=== PATIENT | male | born 1970 ===

== ENCOUNTER 2017-05-08 19:15 | Emergency (ER) | payer SELFPAY ==
[2017-05-08] MEDS ORDERED: Sodium Chloride 0.9% 1,000 ML IV ONE ×2 (19:46→19:47)
[2017-05-08] MEDS ORDERED: Atropine-Diphenoxylate 0.025-2.5 mg Tab PO STA (19:48)
[2017-05-08] MEDS ORDERED: Atropine-Diphenoxylate 0.025-2.5 mg Tab ONE (19:51)
[2017-05-08] MEDS ORDERED: Sodium Chloride 0.9% 1,000 ML ONE (19:52)
--- NOTE | 2017-05-08 19:57 | C.PDOC ---
History Of Present Illness A 46 y/o male c/o abdominal pain and diarrhea for the past 2 days. Pt denies fever, chills, nausea, vomiting, or any other complaints. Time Seen by Provider: 05/08/17 19:56 Chief Complaint (Nursing): Abdominal Pain History Per: Patient History/Exam Limitations: no limitations Current Symptoms Are (Timing): Still Present Severity: Mild Location Of Pain/Discomfort: LUQ, Periumbilical Associated Symptoms: Diarrhea. denies: Fever, Chills, Nausea, Vomiting Recent travel outside of the [place]: No Additional History Per: Patient Past Medical History Reviewed: Historical Data, Nursing Documentation, Vital Signs Vital Signs: Last Vital Signs Temp 99.5 F 05/08/17 21:27 Pulse 88 05/08/17 21:27 Resp 16 05/08/17 21:27 BP 139/87 05/08/17 21:27 Pulse Ox 99 05/08/17 21:31 Family History: States: Unknown Family Hx - Social History Hx Alcohol Use: No Hx Substance Use: No - Immunization History Hx Tetanus Toxoid Vaccination: No Hx Influenza Vaccination: No Hx Pneumococcal Vaccination: No Review Of Systems Except As Marked, All Systems Reviewed And Found Negative. Constitutional: Negative for: Fever, Chills Gastrointestinal: Positive for: Abdominal Pain (LUQ and periumbilical ), Diarrhea. Negative for: Nausea, Vomiting Physical Exam - Physical Exam Appears: Non-toxic, In Acute Distress (Mild distress due to pain) Skin: Warm, Dry Head: Atraumatic, Normacephalic Eye(s): bilateral: Normal Inspection Oral Mucosa: Moist Chest: Symmetrical Cardiovascular: Rhythm Regular Respiratory: Normal Breath Sounds, No Accessory Muscle Use, No Rales, No Rhonchi , No Wheezing Gastrointestinal/Abdominal: Soft, Tenderness (LUQ and periumbilical ), No Guarding, No Rebound Back: Normal Inspection, No CVA Tenderness, No Vertebral Tenderness, No Paraspinal Tenderness Neurological/Psych: Oriented x3, Normal Speech, Normal Cognition, Other (No focal deficit) Gait: Steady ED Course And Treatment - Laboratory Results Result Diagrams: 05/08/17 20:11 05/08/17 20:11 O2 Sat by Pulse Oximetry: 99 (RA) Pulse Ox Interpretation: Normal Medical Decision Making Medical Decision Making: Impression: A 46 y/o male c/o abdominal pain and diarrhea for the past 2 days. Plans: Blood labs Bentyl IV fluids Atropine UA Reassess Disposition Counseled Patient/Family Regarding: Diagnosis - Disposition Referrals: [facility] [Outside] Disposition: HOME/ ROUTINE Disposition Time: 22:10 Condition: STABLE Prescriptions: Atropine/DiphenoxylateAtropine [Lomotil] 5 ml PO Q4 #14 ml Phenobarb/Hyoscy/Atropine/Scop [ Tablet] 16.2 mg PO Q6 #14 tablet Instructions: Gastroenteritis (ED), Acute Diarrhea (ED) Forms: Gen Discharge Inst Kittitian Print Language: CROATIAN - POA Present On Arrival: None - Clinical Impression Clinical Impression: Gastroenteritis - Scribe Statement The provider has reviewed the documentation as recorded by the Scribe Shana garcia All medical record entries made by the Scribe were at my direction and personally dictated by me. I have reviewed the chart and agree that the record accurately reflects my personal performance of the history, physical exam, medical decision making, and the department course for this patient. I have also personally directed, reviewed, and agree with the discharge instructions and disposition.
[2017-05-08 20:15] LABS: BASO % 0.4 % (0.0-2.0); EOS % 0.2 % (0.0-4.0); HEMATOCRIT 48.6 % (35.0-51.0); LYMPH % 15.3 % (20.0-40.0); MEAN CELL VOLUME 86.2 fL (80.0-94.0); MEAN CORPUSCULAR HEMOGLOBIN 29.5 pg (27.0-31.0); MEAN CORPUSCULAR HGB CONC 34.2 g/dL (33.0-37.0); MEAN PLATELET VOLUME 8.6 fL (7.2-11.7); MONO # 0.4 K/uL (0.0-0.8); MONO % 5.9 % (0.0-10.0); NRBC % 0.1 % (0.0-2.0); RED CELL DISTRIBUTION WIDTH 12.7 % (11.5-14.5); WHITE BLOOD COUNT 6.8 K/uL (4.8-10.8)
[2017-05-08 20:32] LABS: CHLORIDE 97 mmol/L (98-107); POTASSIUM 3.6 mmol/L (3.6-5.2); SODIUM 133 mmol/L (132-148)
[2017-05-08 20:34] LABS: GFR AFRICAN-AMERICAN > 60
[2017-05-08 20:35] LABS: ALKALINE PHOSPHATASE 122 U/L (38-126); ALT/SGPT 60 U/L (21-72); AST/SGOT 47 U/L (17-59); BILIRUBIN,TOTAL 0.6 mg/dL (0.2-1.3); BLOOD UREA NITROGEN 16 mg/dL (9-20); CALCIUM 8.3 mg/dl (8.6-10.4); CARBON DIOXIDE 23 mmol/L (22-30); GLUCOSE,RANDOM 108 mg/dL (75-110); TOTAL PROTEIN 7.4 g/dL (6.3-8.3)
[2017-05-08 21:07] LABS: RBC URINE < 1 /hpf (0-3); URINE BACTERIA RARE (<OCC); URINE BILIRUBIN NEGATIVE (NEGATIVE); URINE BLOOD NEGATIVE (NEGATIVE); URINE COLOR Yellow (YELLOW); URINE GLUCOSE (UA) NORMAL (Normal); URINE KETONE NEGATIVE (NEGATIVE); URINE LEUKOCYTE ESTERASE NEG Leu/uL (Negative); URINE PROTEIN NEGATIVE (NEGATIVE); URINE UROBILINOGEN NORMAL mg/dL (0.2-1.0); WBC URINE 1 /hpf (0-5)
[2017-05-08 21:27] VITALS: BP 139/87; PULSE 88; RESP 16; TEMP 99.5
[2017-05-08 21:31] VITALS: O2SAT 99
[2017-05-08] MEDS ORDERED: Belladonna-Phenobarbital PO STA (21:32)
[2017-05-08] MEDS ORDERED: Belladonna-Phenobarbital ONE (21:40)
== END 2017-05-08 22:13 | disposition home or self-care (01) ==
LOC: C.ER 19:15
DX: K52.9 Noninfective gastroenteritis and colitis, unspecified (principal)
CPT/HCPCS: 80053; 81001; 83690; 85025; 96360; 96361; 96372; 99284; J0500; J7040

== ENCOUNTER 2017-11-27 15:32 | Emergency (ER) | payer OTHER ==
[2017-11-27 15:38] VITALS: BP 142/87; PULSE 73; RESP 20; TEMP 98.6; O2SAT 99
[2017-11-27] MEDS ORDERED: Tmp-Smz 800 mg-160 mg DS Tab PO STA (16:04)
[2017-11-27] MEDS ORDERED: Naproxen 550 mg Tab PO STA (16:12)
--- NOTE | 2017-11-27 16:12 | C.PDOC ---
History Of Present Illness 47-year-old male, presents to the emergency department with complaints of pain to right great toe since yesterday. Patient notes swelling and redness on lateral aspect of toe, but denies any trauma. No other complaints at this time. Time Seen by Provider: 11/27/17 15:45 Chief Complaint (Nursing): Lower Extremity Problem/Injury History Per: Patient History/Exam Limitations: no limitations Onset/Duration Of Symptoms: Days Current Symptoms Are (Timing): Still Present Severity: Moderate Past Medical History Reviewed: Historical Data, Nursing Documentation, Vital Signs Vital Signs: Last Vital Signs Temp 98.6 F 11/27/17 15:35 Pulse 73 11/27/17 15:35 Resp 20 11/27/17 15:35 BP 142/87 11/27/17 15:35 Pulse Ox 99 11/27/17 18:29 Family History: States: No Known Family Hx - Social History Hx Alcohol Use: No Hx Substance Use: No - Immunization History Hx Tetanus Toxoid Vaccination: Yes (2011) Hx Influenza Vaccination: No Hx Pneumococcal Vaccination: No Review Of Systems Constitutional: Negative for: Fever Respiratory: Negative for: Shortness of Breath Gastrointestinal: Negative for: Nausea, Vomiting Musculoskeletal: Positive for: Foot Pain Neurological: Negative for: Weakness, Numbness Physical Exam - Physical Exam Appears: Non-toxic, No Acute Distress Skin: Warm, Dry, No Rash Eye(s): bilateral: Normal Inspection Nose: Normal Oral Mucosa: Moist Lips: Normal Appearing Neck: Normal ROM Cardiovascular: Rhythm Regular, No Murmur Respiratory: Normal Breath Sounds, No Accessory Muscle Use Extremity: Other (First digit, right lower extremity developing paronychia tender to palpation with surrounding erythema. No deformity.) Neurological/Psych: Oriented x3 ED Course And Treatment O2 Sat by Pulse Oximetry: 99 (on RA) Pulse Ox Interpretation: Normal Progress Note: Patient treated with Bactrim, Keflex and Naproxen. Will be discharged for outpatient f/u with Rx for abx Medical Decision Making Medical Decision Making: PROCEDURE: PARONYCHIA I & D Performed by the emergency provider Indication:Paronychia Location: right great toe Procedure:The most fluctuant portion was incised with a #11 scalpel. A wedge of nail WAS NOT removed. Small amount of pus expressed Post-Procedure:On exam the paronychia is notably less fluctuant. The patient tolerated the procedure well, and there were no complications. Cultured:No Disposition Counseled Patient/Family Regarding: Diagnosis, Need For Followup, Rx Given - Disposition Referrals: Cayetano Frausto MD [Non-Staff] - Disposition: HOME/ ROUTINE Disposition Time: 16:15 Condition: STABLE Prescriptions: Cephalexin [Keflex] 500 mg PO BID #14 capsule Naproxen 375 mg PO BID PRN #20 tablet PRN Reason: pain Sulfamethoxazole/Trimethoprim [Bactrim DS 800 mg-160 mg] 1 tab PO BID #14 tab Instructions: Paronychia (ED) Forms: [employer] (Romansh) Print Language: BURMESE - POA Present On Arrival: None - Clinical Impression Clinical Impression: Paronychia - Scribe Statement The provider has reviewed the documentation as recorded by the Scribe (Juancho Velasco) All medical record entries made by the Scribe were at my direction and personally dictated by me. I have reviewed the chart and agree that the record accurately reflects my personal performance of the history, physical exam, medical decision making, and the department course for this patient. I have also personally directed, reviewed, and agree with the discharge instructions and disposition.
== END 2017-11-27 17:09 | disposition home or self-care (01) ==
LOC: C.ER 15:32
DX: L03.031 Cellulitis of right toe (principal)